=== PATIENT | female | born 1960 | race Caucasian/White ===

== ENCOUNTER → 2020-11-21 | Outpatient (CLI) | payer BC ==
[~2020-11-21] MED LIST: OXYC-517 PO
--- NOTE | 2020-11-21 16:16 | REP ---
INDICATION: ACHILLES TENDON TEAR. COMPARISON: None. TECHNIQUE: Sagittal fat suppressed T2 and proton density. Coronal proton density, fat suppressed proton density and STIR. Axial fat suppressed proton density and T1. FINDINGS: The tendons of the tibialis anterior, extensor hallucis, and extensor digitorum muscles are intact and of normal appearing low signal throughout. The tendons of the tibialis posterior, flexor digitorum, and flexor hallucis muscles are intact and of normal appearing low signal throughout. The peroneal tendons are intact and of normal appearing low signal throughout. The Achilles tendon is intact and of normal appearing low signal throughout. There is no abnormal Caitlin tendinous fluid. The anterior and posteroinferior tibiofibular ligaments are intact. The anterior and posterior talofibular ligaments are intact. The calcaneofibular ligament is intact. The ligaments within the sinus tarsi are within normal limits and the sinus tarsi fat signal is preserved. The subtalar joints are within normal limits. The lateral talar process is sharp and there is no evidence of cystic degenerative change. There is no evidence of cystic degenerative change seen in the os calcis deep to the angle of [place]iss[place]. There is no ankle joint effusion. There is no evidence of a heel valgus deformity. The chondral surfaces of the talar dome and tibial plafond are smooth and without abnormal chondral or subchondral signal. The marrow signal is within normal limits. There is no evidence of a mass or mass effect. Seen in the posterior os calcis deep to the tendo calcaneal insertion there is a likely incidental 3 mm sized focus of T2 hyper signal. IMPRESSION: There is a tiny T2 hyper signal focus seen in the posterior os calcis, as described above, the clinical significance of which is doubtful and likely represents a tiny osseous cyst. The examination is otherwise unremarkable as described above. <Electronically signed by Pedro Ortiz > 11/21/20 [id number]
== END ==
LOC: M PLAIMG 15:21
PROVIDERS: ATTEND Podiatrist Foot & Ankle Surgery
DX: S86.012A Strain of left Achilles tendon, initial encounter (principal); X58.XXXA Exposure to other specified factors, initial encounter; Y92.89 Other specified places as the place of occurrence of the external cause; Y93.9 Activity, unspecified; Y99.9 Unspecified external cause status